=== PATIENT | male | born 1995 | race African-American/Black ===

== ENCOUNTER 2020-01-11 05:23 | Emergency (ER) | payer OTHER ==
[~2020-01-11] VITALS: Ht 172.7 cm; Wt 79.4 kg
--- NOTE | 2020-01-11 05:41 | NUR ---
TOLU MAGNOLIA REMOVED FROM RT FOREARM, SITE CLEANED AND DRESSED, DR IBRAHIM COMPLETED, ACI TO [facility] OFFICER, PT AMBULATED W/O DIFF. PT IN CUSTODY.
[2020-01-11 05:42] VITALS: BP 144/72
== END 2020-01-11 05:43 ==
LOC: ER 05:26
DX: S51.841A Puncture wound with foreign body of right forearm, initial encounter (principal); Y35.831A Legal intervention involving a conducted energy device, law enforcement official injured, initial encounter; Y92.89 Other specified places as the place of occurrence of the external cause
CPT/HCPCS: A4663